=== PATIENT | male | born 1960 | race Caucasian/White ===

== ENCOUNTER 2022-12-08 17:45 | Inpatient (IN) | payer MEDICARE, OTHER ==
[~2022-12-08] VITALS: Ht 170.2 cm; Wt 90.4 kg
[2022-12-08 18:36] LABS: Basophils # (auto) 0.1 10 ^3/uL (0-0.2); Basophils % (auto) 0.6 % (0.0-2.0); Eosinophils # (auto) 0.2 10 ^3/uL (0-0.8); Eosinophils % (auto) 2.6 % (0.0-7.0); Hematocrit 46.2 % (41.0-53.0); Hemoglobin 15.5 g/dL (13.5-17.5); Lymphocytes # (auto) 2.4 10 ^3/uL (0.4-5.4); Mean Corpuscular Hemoglobin 27.7 pg (28.0-32.0); Mean Corpuscular Hgb Conc. 33.5 g/dL (32.0-36.0); Mean Corpuscular Volume 82.6 fL (80.0-100.0); Monocytes # (auto) 0.9 10 ^3/uL (0-1.3); Neutrophils # (auto) 5.6 10 ^3/uL (1.6-8.6); Neutrophils % (auto) 60.8 % (37.0-80.0); Nucleated Red Blood Cells % 0.1 %; Red Cell Distribution Width 14.2 % (11.8-14.3); White Blood Cell 9.3 10^3/uL (4.4-10.8)
[2022-12-08 18:46] LABS: Albumin 3.6 g/dL (3.4-5.0); Calcium 9.1 mg/dL (8.5-10.1)
[2022-12-08 18:51] LABS: BUN/Creatinine Ratio 19.9 (10.0-20.0); Bilirubin, Total 0.5 mg/dL (0.2-1.0); Total Protein 7.1 g/dL (6.4-8.2)
[2022-12-08 19:24] LABS: Urine Bacteria NONE SEEN /hpf (None Seen); Urine Blood Negative /uL (Negative); Urine Hyaline Cast FEW /lpf (0 - 2); Urine Specific Gravity 1.024 (1.001-1.035); Urine WBC 1 /hpf (0 - 3)
[2022-12-09] MEDS ORDERED: MORPHINE SULFATE INJ 2 MG/ml SYRG IV ONE (06:00)
[2022-12-09] MEDS ORDERED: MORPHINE SULFATE INJ 2 MG/ml SYRG IV PRN (07:00)
[2022-12-09] MEDS ORDERED: TEMAZEPAM 15 MG CAP PO PRN (07:00)
[2022-12-09] MEDS ORDERED: NITROGLYCERIN 0.4 MG SL TAB SL PRN (07:00)
[2022-12-09] MEDS ORDERED: DEXTROSE (50%) 50ML SYRG IV PRN (07:00)
[2022-12-09] MEDS ORDERED: ONDANSETRON HCL 4 MG/2 ML VIAL IV PRN (07:00)
[2022-12-09] MEDS: cloNIDine HCL 0.1 MG TAB PO PRN ×2 (08:31→23:48)
[2022-12-09] MEDS: InsuLIN REG 1unit/0.01ml Soln (100units/ml) SC SCH ×4 (08:38→22:00)
[2022-12-09] MEDS: ACCU-CHEK COMFORT CURVE STRIP VI SCH ×4 (08:38→22:00)
[2022-12-09] MEDS: ENOXAPARIN SOD 40 MG/0.4 ML SYRINGE SC SCH (10:06)
[2022-12-09] MEDS: METOPROLOL TARTRATE 25 MG TAB PO SCH ×2 (10:07→22:00)
[2022-12-09] MEDS: ASPirin 81 mg TAB PO SCH (10:07)
[2022-12-09] MEDS: PANTOPRAZOLE 40 MG TAB PO SCH (10:07)
[2022-12-09] MEDS: HYDROmorphone HCL 2 MG/ML VL/or syr IV PRN ×3 (10:08→23:47)
[2022-12-09 15:03] LABS: Cholesterol 244 mg/dL (< 200); HDL Cholesterol 39 mg/dL (40-59); Triglycerides 683 mg/dL (< 150)
[2022-12-09] MEDS: hydrALAZINE HCL 20 MG/ML VL IV PRN (15:55)
[2022-12-09] MEDS ORDERED: ATORVASTATIN 20 MG TAB PO SCH (22:00)
[2022-12-10] MEDS: hydrALAZINE HCL 20 MG/ML VL IV PRN ×2 (00:32→09:29)
[2022-12-10 05:41] LABS: BUN/Creatinine Ratio 16.1 (10.0-20.0); Potassium 3.9 mmol/L (3.5-5.1)
[2022-12-10 05:49] LABS: Basophils # (auto) 0.1 10 ^3/uL (0-0.2); Basophils % (auto) 0.5 % (0.0-2.0); Eosinophils # (auto) 0.1 10 ^3/uL (0-0.8); Eosinophils % (auto) 0.4 % (0.0-7.0); Hematocrit 45.3 % (41.0-53.0); Hemoglobin 15.8 g/dL (13.5-17.5); Lymphocytes # (auto) 1.9 10 ^3/uL (0.4-5.4); Lymphocytes % (auto) 15.3 % (10.0-50.0); Mean Corpuscular Hgb Conc. 34.8 g/dL (32.0-36.0); Mean Corpuscular Volume 80.4 fL (80.0-100.0); Monocytes # (auto) 1.1 10 ^3/uL (0-1.3); Monocytes % (auto) 9.1 % (0.0-12.0); Neutrophils % (auto) 74.7 % (37.0-80.0); Nucleated Red Blood Cells % 0.1 %; Red Blood Cells 5.63 10^6/uL (4.5-5.90); Red Cell Distribution Width 14.2 % (11.8-14.3); White Blood Cell 12.1 10^3/uL (4.4-10.8)
[2022-12-10] MEDS: cloNIDine HCL 0.1 MG TAB PO PRN (06:28)
[2022-12-10] MEDS: ACCU-CHEK COMFORT CURVE STRIP VI SCH ×4 (06:29→21:39)
[2022-12-10] MEDS: InsuLIN REG 1unit/0.01ml Soln (100units/ml) SC SCH ×4 (06:30→21:38)
[2022-12-10] MEDS ORDERED: CLOP75TA28 PO (06:33)
[2022-12-10] MEDS ORDERED: CLON0.1T PO (06:33)
[2022-12-10] MEDS ORDERED: AML5T PO (06:35)
[2022-12-10] MEDS ORDERED: HYDR12.56 PO (06:35)
[2022-12-10] MEDS ORDERED: LISI40TA11 PO (06:37)
[2022-12-10] MEDS ORDERED: SITA50TA28 PO (06:37)
[2022-12-10] MEDS ORDERED: METO-159 PO (06:38)
[2022-12-10] MEDS ORDERED: SIMV-8 PO (06:38)
[2022-12-10] MEDS ORDERED: INSU1INJ19 SC (06:39)
[2022-12-10 06:44] VITALS: BP 188/90
[2022-12-10 09:00] VITALS: BP 165/88
[2022-12-10] MEDS: ASPirin 81 mg TAB PO SCH (09:27)
[2022-12-10] MEDS: PANTOPRAZOLE 40 MG TAB PO SCH (09:27)
[2022-12-10] MEDS: METOPROLOL TARTRATE 25 MG TAB PO SCH (09:28)
[2022-12-10] MEDS: ATORVASTATIN 20 MG TAB PO SCH ×2 (09:28→21:37)
[2022-12-10] MEDS: ENOXAPARIN SOD 40 MG/0.4 ML SYRINGE SC SCH (09:29)
[2022-12-10] MEDS: HYDROmorphone HCL 2 MG/ML VL/or syr IV PRN (10:16)
[2022-12-10] MEDS: CLOPIDOGREL BISULFATE 75 MG TAB PO SCH (10:18)
[2022-12-10] MEDS: METOPROLOL TARTRATE 50 MG TAB PO SCH ×2 (10:18→21:37)
[2022-12-10] MEDS: NITROGLYCERIN 0.4MG/HR TOPICAL PATCH TD SCH (10:26)
[2022-12-10 12:49] VITALS: BP 158/86
[2022-12-10 16:28] VITALS: BP 147/88
[2022-12-10 22:00] VITALS: BP 187/87
[2022-12-11] VITALS (9 sets, daily range): BP systolic 125–183; BP diastolic 71–93
[2022-12-11 05:49] LABS: Basophils # (auto) 0 10 ^3/uL (0-0.2); Basophils % (auto) 0.3 % (0.0-2.0); Eosinophils # (auto) 0 10 ^3/uL (0-0.8); Eosinophils % (auto) 0.1 % (0.0-7.0); Hemoglobin 15.1 g/dL (13.5-17.5); Lymphocytes # (auto) 1.3 10 ^3/uL (0.4-5.4); Mean Corpuscular Hemoglobin 27.4 pg (28.0-32.0); Mean Corpuscular Hgb Conc. 33.5 g/dL (32.0-36.0); Mean Corpuscular Volume 81.8 fL (80.0-100.0); Monocytes # (auto) 1.3 10 ^3/uL (0-1.3); Monocytes % (auto) 9.9 % (0.0-12.0); Neutrophils # (auto) 10.6 10 ^3/uL (1.6-8.6); Neutrophils % (auto) 79.7 % (37.0-80.0); Nucleated Red Blood Cells % 0.1 %; Red Cell Distribution Width 14.3 % (11.8-14.3); White Blood Cell 13.3 10^3/uL (4.4-10.8)
[2022-12-11 05:51] LABS: BUN/Creatinine Ratio 14.8 (10.0-20.0); Calcium 9.1 mg/dL (8.5-10.1); Potassium 3.7 mmol/L (3.5-5.1)
[2022-12-11 06:25] LABS: INR 0.92 (0.9-1.15); Partial Thromboplastin Time 26.4 sec (24.6-33.4)
[2022-12-11] MEDS: InsuLIN REG 1unit/0.01ml Soln (100units/ml) SC SCH ×3 (06:27→17:00)
[2022-12-11] MEDS: ACCU-CHEK COMFORT CURVE STRIP VI SCH ×3 (06:28→18:41)
[2022-12-11] MEDS: ENOXAPARIN SOD 40 MG/0.4 ML SYRINGE SC SCH (08:26)
[2022-12-11] MEDS: CLOPIDOGREL BISULFATE 75 MG TAB PO SCH (08:28)
[2022-12-11] MEDS: ASPirin 81 mg TAB PO SCH (08:28)
[2022-12-11] MEDS: METOPROLOL TARTRATE 50 MG TAB PO SCH (08:29)
[2022-12-11] MEDS: PANTOPRAZOLE 40 MG TAB PO SCH (08:29)
[2022-12-11] MEDS ORDERED: cloNIDine HCL 0.1 MG TAB PO PRN (09:15)
[2022-12-11] MEDS: NITROGLYCERIN 0.4MG/HR TOPICAL PATCH TD SCH (10:00)
[2022-12-11] MEDS ORDERED: amLODIPine BESYLATE 5 MG TAB PO ONE (11:00)
[2022-12-11] MEDS ORDERED: LISINOPRIL 20 MG TAB PO ONE (11:00)
[2022-12-11] MEDS ORDERED: IOHEXOL 350 MG/ML 100ML IJ ONE ×2 (13:06→13:50)
[2022-12-11] MEDS ORDERED: HEPARIN SODIUM (PORCINE) 5000 UNITS/ML 1ML VIAL ONE (13:18)
[2022-12-11] MEDS ORDERED: VERAPAMIL 2.5MG/ML INJ 2ML VIAL IV ONE (13:18)
[2022-12-11] MEDS ORDERED: SODIUM CHL 0.9% 50 ML ONE (13:22)
[2022-12-11] MEDS ORDERED: MIDAZOLAM HCL 2MG/2ML 2ml VIAL (1mg/ml) ONE ×2 (13:22→13:43)
[2022-12-11] MEDS ORDERED: ANGIOMAX 250 MG VIAL IV ONE (13:22)
[2022-12-11] MEDS ORDERED: fentaNYL CITRATE 100 MCG/2 ML VL ONE ×2 (13:22→13:43)
[2022-12-12] MEDS ORDERED: amLODIPine BESYLATE 5 MG TAB PO SCH (10:00)
[2022-12-12] MEDS ORDERED: LISINOPRIL 20 MG TAB PO SCH (10:00)
== END 2022-12-11 18:00 | disposition left against medical advice (07) | DRG 247 ==
LOC: ER 17:45 → TELE 12-09 06:54 → TELE-CENTR 12-10 04:22
PROVIDERS: ADMIT Nurse Practitioner; ATTEND Family Medicine
PROC: 027135Z Dilation of Coronary Artery, Two Arteries with Two Drug-eluting Intraluminal Devices, Percutaneous Approach (ICD-10-PCS; principal; 2022-12-11)
PROC: 4A023N7 Measurement of Cardiac Sampling and Pressure, Left Heart, Percutaneous Approach (ICD-10-PCS; 2022-12-11)
PROC: B2111ZZ Fluoroscopy of Multiple Coronary Arteries using Low Osmolar Contrast (ICD-10-PCS; 2022-12-11)
PROC: B2151ZZ Fluoroscopy of Left Heart using Low Osmolar Contrast (ICD-10-PCS; 2022-12-11)
PROC: 4A033BC Measurement of Arterial Pressure, Coronary, Percutaneous Approach (ICD-10-PCS; 2022-12-11)
DX: I25.110 Atherosclerotic heart disease of native coronary artery with unstable angina pectoris (principal); I24.9 Acute ischemic heart disease, unspecified; E11.22 Type 2 diabetes mellitus with diabetic chronic kidney disease; I12.9 Hypertensive chronic kidney disease with stage 1 through stage 4 chronic kidney disease, or unspecified chronic kidney disease; N18.9 Chronic kidney disease, unspecified; E66.9 Obesity, unspecified; Z53.29 Procedure and treatment not carried out because of patient's decision for other reasons; E78.00 Pure hypercholesterolemia, unspecified; Z20.822 Contact with and (suspected) exposure to COVID-19; E78.1 Pure hyperglyceridemia; I25.2 Old myocardial infarction; Z79.02 Long term (current) use of antithrombotics/antiplatelets; Z79.4 Long term (current) use of insulin; Z79.899 Other long term (current) drug therapy; Z80.0 Family history of malignant neoplasm of digestive organs; Z82.49 Family history of ischemic heart disease and other diseases of the circulatory system; Z83.3 Family history of diabetes mellitus; Z95.5 Presence of coronary angioplasty implant and graft; Z68.31 Body mass index [BMI] 31.0-31.9, adult
CPT/HCPCS: 36415; 71045; 80048; 80053; 80061; 81001; 82962; 83690; 83880; 84484; 85025; 85610; 85730; 86850; 86900; 86901; 87426; 92928; 93005; 93306; 93458; 93571; 96374; 99152; 99153; C1887; G0378; J1815; J2250

== ENCOUNTER 2023-08-16 10:17 | Emergency (ER) | payer MEDICARE, OTHER ==
[~2023-08-16] VITALS: Ht 170.2 cm; Wt 90.5 kg
[~2023-08-16 10:17] MED LIST: AML5T PO; CLON0.1T PO; CLOP75TA28 PO; HYDR12.59 PO; INSU1INJ19 SC; LISI40TA16 PO; METO-159 PO; SIMV20TA20 PO; SITA50TA28 PO
[2023-08-16 13:13] LABS: COVID19 ANTIGEN SOFIA FIA NEGATIVE (NEGATIVE)
[2023-08-16 13:14] LABS: Rapid Influenza A Negative (Negative); Rapid Influenza B Negative (Negative)
[2023-08-16 14:49] VITALS: BP 136/81; PULSE 71; RESP 19; TEMP 98.2; O2SAT 99
[2023-08-16] MEDS ORDERED: PROM1SOL4 PO (14:55)
[2023-08-16] MEDS ORDERED: AZIT-81 PO (14:55)
[2023-08-16] MEDS ORDERED: ACET500T58 PO (14:55)
== END 2023-08-16 14:56 | disposition home or self-care (01) ==
LOC: ER 10:17
DX: J40 Bronchitis, not specified as acute or chronic (principal); E11.9 Type 2 diabetes mellitus without complications; E78.5 Hyperlipidemia, unspecified; I10 Essential (primary) hypertension; Z20.822 Contact with and (suspected) exposure to COVID-19
CPT/HCPCS: 36415; 71045; 87426; 87804